=== PATIENT | male | born 1960 | race Caucasian/White ===

== ENCOUNTER 2018-08-28 15:48 | Emergency (ER) | payer BC ==
[2018-08-28] MEDS: SODIUM CHLORIDE 0.9% FLUSH 10 ML SOL IV PRN ×3 (15:55→17:40)
[2018-08-28 16:00] LABS: BASOPHILS % (AUTO) 1 % (0-3); EOSINOPHILS % (AUTO) 2 % (0-9); HEMATOCRIT 46 % (39-53); HEMOGLOBIN 14.9 gm/dl (13.5-17.7); LYMPHOCYTES % (AUTO) 24.6 % (10-50); MEAN CORPUSCULAR HGB CONC 32.6 gm/dl (32.0-36.0); MEAN CORPUSCULAR VOLUME 89 fL (80-100); MONOCYTES % (AUTO) 7.8 % (0-12); NEUTROPHILS % (AUTO) 64.8 % (37-80)
[2018-08-28 16:15] LABS: ALBUMIN 3.9 gm/dl (3.4-5.0); BILIRUBIN,TOTAL 0.5 mg/dl (0.2-1.0); CALCIUM 8.6 mg/dl (8.5-10.1); CARBON DIOXIDE 26.5 mEq/L (21-32); CREATININE 0.8 mg/dl (0.80-1.30); POTASSIUM 3.6 mMol/L (3.5-5.1); TOTAL PROTEIN 7.5 gm/dl (6.4-8.2)
[2018-08-28 16:37] VITALS: TEMP 98.6
[2018-08-28] MEDS ORDERED: BACITRACIN 500 U/GM OIN TOP ONE ×2 (16:59→17:41)
[2018-08-28] MEDS ORDERED: TDAP VACCINE 0.5 ML SUS IM ONE ×2 (17:28→17:30)
[2018-08-28] MEDS ORDERED: FENTANYL 100MCG/2ML SOL IV ONE (17:28)
[2018-08-28] MEDS ORDERED: FENTANYL 100MCG/2ML SOL ONE (17:30)
[2018-08-28] MEDS ORDERED: ONDANSETRON HCL 4 MG/2 ML SOL ONE (17:34)
[2018-08-28 19:34] VITALS: BP 131/79; PULSE 72; RESP 22; O2SAT 94
== END 2018-08-28 18:05 | disposition home or self-care (01) ==
LOC: ED 15:48
DX: S09.90XA Unspecified injury of head, initial encounter (principal); S22.42XA Multiple fractures of ribs, left side, initial encounter for closed fracture; W19.XXXA Unspecified fall, initial encounter; R55 Syncope and collapse; R40.2362 Coma scale, best motor response, obeys commands, at arrival to emergency department; R40.2142 Coma scale, eyes open, spontaneous, at arrival to emergency department; R40.2252 Coma scale, best verbal response, oriented, at arrival to emergency department; S01.01XA Laceration without foreign body of scalp, initial encounter; I10 Essential (primary) hypertension
CPT/HCPCS: 12002; 70450; 72125; 72128; 80053; 85025; 85610; 90471; 90715; 93005; 96374; 96375; 99285; 99291; G0390; J2405; J3010; A6402; A9270-GY